=== PATIENT | female | born 1995 | race Caucasian/White ===

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

== ENCOUNTER 2017-05-30 19:25 | Emergency (ER) | payer MEDICAID ==
[~2017-05-30] VITALS: Ht 160 cm; Wt 117.9 kg
[2017-05-30 20:32] LABS: Urine Bacteria FEW /hpf (None Seen); Urine Blood 3+ /uL (Negative); Urine Specific Gravity 1.008 (1.001-1.035); Urine WBC 771 /hpf (0 - 5); Urine WBC Clumps PRESENT /hpf (None Seen)
[2017-05-30 22:18] VITALS: BP 130/73
== END 2017-05-30 23:02 | disposition home or self-care (01) ==
LOC: ER 19:25
DX: N39.0 Urinary tract infection, site not specified (principal); I10 Essential (primary) hypertension; E66.01 Morbid (severe) obesity due to excess calories; Z68.42 Body mass index [BMI] 45.0-49.9, adult; Z87.440 Personal history of urinary (tract) infections
CPT/HCPCS: 81001; 81025

== ENCOUNTER 2019-03-23 13:12 | Emergency (ER) | payer MEDICAID ==
[~2019-03-23] VITALS: Ht 157.5 cm; Wt 115.7 kg
[2019-03-23] MEDS ORDERED: SODIUM CHLORIDE 0.9% 1,000 ML IV ONE ×2 (13:14)
[2019-03-23] MEDS ORDERED: ACTIVATED CHARCOAL 50 GM/240 ML SOL PO ONE (13:15)
[2019-03-23 13:40] LABS: Basophils # (auto) 0.1 uL; Eosinophils # (auto) 0.1 uL; Eosinophils % (auto) 1.1 % (0.0-7.0); Hematocrit 41.9 % (36.0-46.0); Hemoglobin 14.2 g/dL (12.2-16.2); Lymphocytes # (auto) 2.5 uL; Lymphocytes % (auto) 26.5 % (10.0-50.0); Mean Corpuscular Volume 88.4 fL (80.0-100.0); Monocytes # (auto) 0.5 uL; Monocytes % (auto) 5.4 % (0.0-12.0); Neutrophils # (auto) 6.2 uL; Nucleated Red Blood Cells % 0.1 %; Platelet Count (auto) 371 10^3/uL (140-450); Red Blood Cells 4.75 10^6/uL (4.0-5.20); Red Cell Distribution Width 14.1 % (11.8-14.3); White Blood Cell 9.4 10^3/uL (4.4-10.8)
[2019-03-23 14:00] LABS: Albumin 3.9 g/dL (3.4-5.0); Anion Gap 6 (5-15); Blood Urea Nitrogen 7 mg/dL (7-18); Calcium 9.2 mg/dL (8.5-10.1); Carbon Dioxide 28 mmol/L (21-32); Chloride 104 mmol/L (98-107); Glucose 85 mg/dL (74-106); Potassium 4.4 mmol/L (3.5-5.1); Sodium 138 mmol/L (136-145)
[2019-03-23 14:01] LABS: Alanine Aminotransferase 17 U/L (13-56); Aspartate Aminotransferase 9 U/L (15-37); BUN/Creatinine Ratio 6.9; Blood Alcohol < 3.0 mg/dL (0-5); GFR African American 88 mL/min; GFR Non-African American 73 mL/min; Salicylate < 1.7 mg/dL (2.8-20.0)
[2019-03-23 14:02] LABS: Acetaminophen < 2.0 ug/mL (10-30)
[2019-03-23 14:03] LABS: Alkaline Phosphatase 90 U/L (45-117); Bilirubin, Total < 0.1 mg/dL (0.2-1.0); Total Protein 7.3 g/dL (6.4-8.2)
[2019-03-24] MEDS ORDERED: lamoTRIgine 100 MG TAB PO SCH (14:00)
[2019-03-24 17:01] VITALS: BP 122/62
[2019-03-24] MEDS ORDERED: lamoTRIgine 100 MG TAB PO ONE (22:00)
[2019-03-24] MEDS ORDERED: DULoxetine HCL 30 MG CAP PO ONE (22:00)
[2019-03-24] MEDS ORDERED: BENZTROPINE MESY 0.5 MG TAB PO SCH (22:00)
[2019-03-24] MEDS ORDERED: QUEtiapine FUMARATE 25 MG TAB PO SCH (22:00)
== END 2019-03-24 17:37 ==
LOC: ER 13:17
DX: T43.592A Poisoning by other antipsychotics and neuroleptics, intentional self-harm, initial encounter (principal); R42 Dizziness and giddiness; F31.9 Bipolar disorder, unspecified; F41.9 Anxiety disorder, unspecified; F17.210 Nicotine dependence, cigarettes, uncomplicated; Y92.89 Other specified places as the place of occurrence of the external cause
CPT/HCPCS: 36415; 71045; 80053; 80320; 80329; 82962; 84702; 85025; 93005; 96360; 96361; 99285; J7030

== ENCOUNTER 2020-09-21 21:55 | Inpatient (IN) | payer MEDICAID ==
[~2020-09-21] VITALS: Ht 157.5 cm; Wt 131.0 kg
[2020-09-21 22:52] LABS: Urine Amorphous Crystal FEW /hpf (None Seen); Urine Bacteria FEW /hpf (None Seen); Urine Blood 1+ /uL (Negative); Urine Mucus FEW (None Seen); Urine Specific Gravity 1.013 (1.001-1.035); Urine WBC 18 /hpf (0 - 5)
[2020-09-21 23:37] LABS: Basophils # (auto) 0.2 10 ^3/uL (0-0.2); Basophils % (auto) 0.9 % (0.0-2.0); Eosinophils # (auto) 0.2 10 ^3/uL (0-0.8); Eosinophils % (auto) 1.2 % (0.0-7.0); Hemoglobin 14.4 g/dL (12.2-16.2); Lymphocytes # (auto) 2.7 10 ^3/uL (0.4-5.4); Lymphocytes % (auto) 13.4 % (10.0-50.0); Mean Corpuscular Hemoglobin 29.4 pg (28.0-32.0); Mean Corpuscular Hgb Conc. 33.5 g/dL (32.0-36.0); Mean Corpuscular Volume 87.7 fL (80.0-100.0); Monocytes # (auto) 1.1 10 ^3/uL (0-1.3); Monocytes % (auto) 5.3 % (0.0-12.0); Neutrophils # (auto) 16.3 10 ^3/uL (1.6-8.6); Neutrophils % (auto) 79.2 % (37.0-80.0); Nucleated Red Blood Cells % 0.1 %; Red Blood Cells 4.91 10^6/uL (4.0-5.20); Red Cell Distribution Width 13.3 % (11.8-14.3); White Blood Cell 20.6 10^3/uL (4.4-10.8)
[2020-09-21 23:58] LABS: Albumin 3.8 g/dL (3.4-5.0); Calcium 8.8 mg/dL (8.5-10.1); Potassium 3.9 mmol/L (3.5-5.1)
[2020-09-22 00:01] LABS: Bilirubin, Total 0.3 mg/dL (0.2-1.0); Total Protein 7.2 g/dL (6.4-8.2)
[2020-09-22] MEDS ORDERED: cefTRIAXone 1GM/50ML D5W 50 ML IV ONE (00:30)
[2020-09-22] MEDS ORDERED: ONDANSETRON HCL 4 MG/2 ML VIAL IV ONE (00:45)
[2020-09-22] MEDS ORDERED: metroNIDAZOLE 500MG/100ML 100 ML IV ONE (00:45)
[2020-09-22] MEDS ORDERED: MORPHINE SULFATE INJECTION 2 MG/ML SYRG IV ONE (00:45)
[2020-09-22] MEDS ORDERED: SODIUM CHLORIDE 0.9% 1,000 ML IV ONE (00:45)
[2020-09-22] MEDS ORDERED: ONDANSETRON HCL 4 MG/2 ML VIAL IV PRN ×2 (01:15→16:15)
[2020-09-22 01:51] LABS: Partial Thromboplastin Time 28.8 sec (23.0-31.2)
[2020-09-22 02:03] VITALS: BP 121/93
[2020-09-22] MEDS ORDERED: BUPR150T8 PO (02:39)
[2020-09-22] MEDS ORDERED: DULO60CA PO (02:39)
[2020-09-22] MEDS ORDERED: ARIP1TAB7 PO (02:39)
[2020-09-22] MEDS ORDERED: QUET50TA PO (02:39)
[2020-09-22] MEDS: SODIUM CHLORIDE 0.9% 1,000 ML IV SCH ×2 (03:00→09:14)
[2020-09-22] MEDS: metroNIDAZOLE 500MG/100ML 100 ML IV SCH ×3 (05:10→21:36)
[2020-09-22 05:18] VITALS: BP 98/64
[2020-09-22 08:30] VITALS: BP 126/75
[2020-09-22] MEDS: PANTOPRAZOLE 40 MG/10 ML VIAL INJ IV SCH (09:14)
[2020-09-22] MEDS: cefTRIAXone 1GM/50ML D5W 50 ML IV SCH (09:14)
[2020-09-22] MEDS ORDERED: ROCURONIUM 10MG/ML 10ML VIAL IV ONE (11:39)
[2020-09-22] MEDS ORDERED: BUPIVACAINE HCL 0 ML ONE (12:28)
[2020-09-22 12:30] VITALS: BP 107/60
[2020-09-22] MEDS ORDERED: SUCCINYLCHOLINE CHLORIDE 20 MG/ML 10ML VIAL IV ONE (12:51)
[2020-09-22] MEDS ORDERED: LIDOCAINE 2% (LOCAL ANESTH.) PF 5ml SDV ONE (12:59)
[2020-09-22] MEDS ORDERED: fentaNYL CITRATE 100 MCG/2 ML VL ONE (12:59)
[2020-09-22] MEDS ORDERED: MIDAZOLAM HCL 2MG/2ML 2ml VIAL (1mg/ml) ONE (12:59)
[2020-09-22] MEDS ORDERED: HYDROmorphone HCL 2 MG/ML VL ONE (14:50)
[2020-09-22] MEDS ORDERED: PROPOFOL 10 MG/ML 20 ML IV ONE (15:23)
[2020-09-22] MEDS ORDERED: ONDANSETRON HCL 4 MG/2 ML VIAL ONE (15:32)
[2020-09-22] MEDS: MORPHINE SULFATE 4 MG/ML SYR/VIAL IV PRN ×2 (16:04→21:07)
[2020-09-22] MEDS ORDERED: HYDROmorphone HCL 2 MG/ML VL IV PRN ×2 (16:15)
[2020-09-22 16:58] VITALS: BP 135/76
[2020-09-22] MEDS: QUEtiapine FUMARATE 25 MG TAB PO SCH (21:37)
[2020-09-22 22:00] VITALS: BP 121/78
[2020-09-23] MEDS: SODIUM CHLORIDE 0.9% 1,000 ML IV SCH ×2 (00:47→09:47)
[2020-09-23] MEDS: MORPHINE SULFATE 4 MG/ML SYR/VIAL IV PRN ×3 (01:31→09:45)
[2020-09-23 05:00] VITALS: BP 113/70
[2020-09-23] MEDS: metroNIDAZOLE 500MG/100ML 100 ML IV SCH ×3 (05:20→21:26)
[2020-09-23 07:12] LABS: Basophils # (auto) 0 10 ^3/uL (0-0.2); Basophils % (auto) 0.2 % (0.0-2.0); Eosinophils # (auto) 0.1 10 ^3/uL (0-0.8); Hematocrit 36.4 % (36.0-46.0); Hemoglobin 12.4 g/dL (12.2-16.2); Lymphocytes # (auto) 2.3 10 ^3/uL (0.4-5.4); Lymphocytes % (auto) 18.4 % (10.0-50.0); Mean Corpuscular Hemoglobin 29.9 pg (28.0-32.0); Mean Corpuscular Hgb Conc. 34.2 g/dL (32.0-36.0); Mean Corpuscular Volume 87.4 fL (80.0-100.0); Monocytes # (auto) 0.8 10 ^3/uL (0-1.3); Monocytes % (auto) 6.1 % (0.0-12.0); Neutrophils # (auto) 9.1 10 ^3/uL (1.6-8.6); Neutrophils % (auto) 74.3 % (37.0-80.0); Red Blood Cells 4.17 10^6/uL (4.0-5.20); Red Cell Distribution Width 13.7 % (11.8-14.3); White Blood Cell 12.3 10^3/uL (4.4-10.8)
[2020-09-23 07:16] LABS: Calcium 7.8 mg/dL (8.5-10.1); Potassium 3.6 mmol/L (3.5-5.1)
[2020-09-23 07:20] LABS: Albumin 2.8 g/dL (3.4-5.0)
[2020-09-23 07:23] LABS: Bilirubin, Total 0.3 mg/dL (0.2-1.0); Total Protein 5.9 g/dL (6.4-8.2)
[2020-09-23] MEDS: DULoxetine HCL 30 MG CAP PO SCH (08:36)
[2020-09-23] MEDS: PANTOPRAZOLE 40 MG/10 ML VIAL INJ IV SCH (08:36)
[2020-09-23] MEDS: cefTRIAXone 1GM/50ML D5W 50 ML IV SCH (08:36)
[2020-09-23 09:00] VITALS: BP 114/68
[2020-09-23] MEDS: BUPROPION HCL 300 MG PO SCH (09:44)
[2020-09-23] MEDS ORDERED: NICOTINE 14 MG/24HR TOPICAL PATCH TD ONE (12:00)
[2020-09-23] MEDS: ENOXAPARIN SOD 40 MG/0.4 ML SYRINGE SC SCH (12:15)
[2020-09-23] MEDS: HYDROcodone-ACET 10/325MG TAB PO PRN ×2 (12:29→21:26)
[2020-09-23 13:00] VITALS: BP 114/82
[2020-09-23] MEDS: MORPHINE SULFATE INJECTION 2 MG/ML SYRG IV PRN ×3 (13:51→23:10)
[2020-09-23 17:00] VITALS: BP 118/72
[2020-09-23] MEDS: QUEtiapine FUMARATE 25 MG TAB PO SCH (21:27)
[2020-09-23 22:00] VITALS: BP_SYST 120; BP_SYST 133; BP_DIAS 58; BP_DIAS 78
[2020-09-24] MEDS: SODIUM CHLORIDE 0.9% 1,000 ML IV SCH ×3 (00:19→23:51)
[2020-09-24] MEDS: MORPHINE SULFATE INJECTION 2 MG/ML SYRG IV PRN ×4 (04:07→21:28)
[2020-09-24 05:00] VITALS: BP 127/70
[2020-09-24] MEDS: metroNIDAZOLE 500MG/100ML 100 ML IV SCH ×3 (06:03→21:31)
[2020-09-24 08:00] VITALS: BP 129/69
[2020-09-24 08:43] VITALS: BP 129/69
[2020-09-24] MEDS: cefTRIAXone 1GM/50ML D5W 50 ML IV SCH (09:11)
[2020-09-24] MEDS: PANTOPRAZOLE 40 MG/10 ML VIAL INJ IV SCH (09:11)
[2020-09-24] MEDS: BUPROPION HCL 300 MG PO SCH (09:11)
[2020-09-24] MEDS: DULoxetine HCL 30 MG CAP PO SCH (09:12)
[2020-09-24] MEDS: NICOTINE 14 MG/24HR TOPICAL PATCH TD SCH (09:12)
[2020-09-24] MEDS: ENOXAPARIN SOD 40 MG/0.4 ML SYRINGE SC SCH (09:12)
[2020-09-24 12:54] VITALS: BP 130/61
[2020-09-24] MEDS: HYDROcodone-ACET 10/325MG TAB PO PRN (15:25)
[2020-09-24 16:55] VITALS: BP 121/77
[2020-09-24] MEDS: DOCUSATE SOD 100 MG CAP PO PRN (18:34)
[2020-09-24] MEDS: QUEtiapine FUMARATE 25 MG TAB PO SCH (21:31)
[2020-09-24 22:00] VITALS: BP 119/63
[2020-09-25 05:00] VITALS: BP 118/56
[2020-09-25] MEDS: metroNIDAZOLE 500MG/100ML 100 ML IV SCH ×2 (06:12→14:29)
[2020-09-25 08:00] VITALS: BP 130/83
[2020-09-25] MEDS: DOCUSATE SOD 100 MG CAP PO PRN ×2 (08:51→18:01)
[2020-09-25] MEDS: HYDROcodone-ACET 10/325MG TAB PO PRN ×2 (08:51→15:49)
[2020-09-25 08:57] VITALS: BP 130/83
[2020-09-25] MEDS: DULoxetine HCL 30 MG CAP PO SCH (09:19)
[2020-09-25] MEDS: cefTRIAXone 1GM/50ML D5W 50 ML IV SCH (09:19)
[2020-09-25] MEDS: PANTOPRAZOLE 40 MG/10 ML VIAL INJ IV SCH (09:20)
[2020-09-25] MEDS: ENOXAPARIN SOD 40 MG/0.4 ML SYRINGE SC SCH ×2 (09:20→10:00)
[2020-09-25] MEDS: BUPROPION HCL 300 MG PO SCH (09:20)
[2020-09-25] MEDS: NICOTINE 14 MG/24HR TOPICAL PATCH TD SCH (09:20)
[2020-09-25] MEDS ORDERED: AMOXICILLIN/CLAVUL 875 MG TAB PO ONE (11:30)
[2020-09-25] MEDS: SODIUM CHLORIDE 0.9% 1,000 ML IV SCH (11:37)
[2020-09-25 13:00] VITALS: BP 115/70
[2020-09-25 14:37] VITALS: BP 115/70
[2020-09-25 17:15] VITALS: BP 149/86
== END 2020-09-25 20:00 | disposition home health service (06) | DRG 223 ==
LOC: ER 21:56 → OVERFLOW 09-22 01:01 → WEST WING 09-22 01:44
PROVIDERS: ADMIT Nurse Practitioner; ATTEND Internal Medicine
PROC: 0TQB0ZZ Repair Bladder, Open Approach (ICD-10-PCS; 2020-09-22)
PROC: 0WJG4ZZ Inspection of Peritoneal Cavity, Percutaneous Endoscopic Approach (ICD-10-PCS; 2020-09-22)
PROC: 0DTJ0ZZ Resection of Appendix, Open Approach (ICD-10-PCS; principal; 2020-09-22 13:00)
DX: K35.80 Unspecified acute appendicitis (principal); E66.01 Morbid (severe) obesity due to excess calories; N39.0 Urinary tract infection, site not specified; Z20.822 Contact with and (suspected) exposure to COVID-19; E88.09 Other disorders of plasma-protein metabolism, not elsewhere classified; F41.9 Anxiety disorder, unspecified; F17.210 Nicotine dependence, cigarettes, uncomplicated; S37.23XA Laceration of bladder, initial encounter; F31.9 Bipolar disorder, unspecified; X58.XXXA Exposure to other specified factors, initial encounter; Z68.43 Body mass index [BMI] 50.0-59.9, adult; Z53.31 Laparoscopic surgical procedure converted to open procedure; Z80.3 Family history of malignant neoplasm of breast; Z90.49 Acquired absence of other specified parts of digestive tract; Y93.89 Activity, other specified; Y92.89 Other specified places as the place of occurrence of the external cause; Y99.8 Other external cause status; Z71.6 Tobacco abuse counseling
CPT/HCPCS: 36415; 71046; 74176; 80053; 81001; 81025; 85025; 85610; 85730; 86850; 86900; 86901; 87426; 96365; 96367; 96375; 97116; 97163; 97530; C9113; G0378; J0330; J0696; J2001; J2250; J2405; J2704; J3490

== ENCOUNTER 2020-10-02 21:28 | Emergency (ER) | payer MEDICAID ==
[~2020-10-02] VITALS: Ht 157.5 cm; Wt 122.5 kg
[~2020-10-02 21:28] MED LIST changes: +ARIP1TAB7 PO; +BUPR150T8 PO; -DULO20CA PO; +DULO60CA PO; -MIRT1TAB PO; +QUET50TA PO; -RISP0.2535 PO; -TRAZ50TA2 PO
[2020-10-02 22:04] VITALS: BP 134/79
== END 2020-10-03 01:52 | disposition home or self-care (01) ==
LOC: ER 21:30
DX: T83.018A Breakdown (mechanical) of other urinary catheter, initial encounter (principal); F17.210 Nicotine dependence, cigarettes, uncomplicated
CPT/HCPCS: 51702

== ENCOUNTER → 2020-10-13 | Outpatient (CLI) | payer MEDICAID ==
[~2020-10-13] MED LIST changes: +IOTHALAMATE MEGLUMINE INJ 250ML BOT UR ONE
== END | disposition home or self-care (01) ==
LOC: XYW 11:15
PROVIDERS: ATTEND Surgery
DX: N32.89 Other specified disorders of bladder (principal); F31.89 Other bipolar disorder; F17.200 Nicotine dependence, unspecified, uncomplicated; F41.9 Anxiety disorder, unspecified; F99 Mental disorder, not otherwise specified; Z98.890 Other specified postprocedural states; Z79.899 Other long term (current) drug therapy
CPT/HCPCS: 51600; 74430; Q9958; 51702

== ENCOUNTER 2021-02-08 18:58 | Emergency (ER) | payer MEDICAID ==
[~2021-02-08] VITALS: Ht 157.5 cm; Wt 122.5 kg
[~2021-02-08 18:58] MED LIST changes: -IOTHALAMATE MEGLUMINE INJ 250ML BOT UR ONE
[2021-02-08 19:27] LABS: Urine Bacteria FEW /hpf (None Seen); Urine Blood 2+ /uL (Negative); Urine Mucus FEW (None Seen); Urine Specific Gravity 1.022 (1.001-1.035); Urine WBC 158 /hpf (0 - 5)
[2021-02-08 22:34] VITALS: BP 154/93
[2021-02-08] MEDS ORDERED: cefTRIAXone SOD 1,000 MG VL IM ONE (23:00)
== END 2021-02-08 23:37 | disposition home or self-care (01) ==
LOC: ER 18:59
DX: N39.0 Urinary tract infection, site not specified (principal); E66.9 Obesity, unspecified; R45.5 Hostility; F17.210 Nicotine dependence, cigarettes, uncomplicated; Z68.41 Body mass index [BMI] 40.0-44.9, adult; Z79.899 Other long term (current) drug therapy
CPT/HCPCS: 81001; 96372; 99283; J0696

== ENCOUNTER 2021-05-09 16:42 | Emergency (ER) | payer MEDICAID ==
[~2021-05-09] VITALS: Ht 157.5 cm; Wt 113.4 kg
[2021-05-09 19:24] LABS: Basophils # (auto) 0.1 10 ^3/uL (0-0.2); Basophils % (auto) 0.7 % (0.0-2.0); Eosinophils # (auto) 0.1 10 ^3/uL (0-0.8); Eosinophils % (auto) 0.9 % (0.0-7.0); Hematocrit 45.5 % (36.0-46.0); Lymphocytes # (auto) 2.9 10 ^3/uL (0.4-5.4); Lymphocytes % (auto) 25.3 % (10.0-50.0); Mean Corpuscular Hemoglobin 29.4 pg (28.0-32.0); Mean Corpuscular Volume 88.9 fL (80.0-100.0); Monocytes # (auto) 0.7 10 ^3/uL (0-1.3); Neutrophils # (auto) 7.6 10 ^3/uL (1.6-8.6); Neutrophils % (auto) 67.1 % (37.0-80.0); Red Blood Cells 5.12 10^6/uL (4.0-5.20); Red Cell Distribution Width 13.7 % (11.8-14.3); White Blood Cell 11.4 10^3/uL (4.4-10.8)
[2021-05-09 19:39] LABS: Albumin 4.2 g/dL (3.4-5.0); Calcium 9.3 mg/dL (8.5-10.1)
[2021-05-09 19:43] LABS: BUN/Creatinine Ratio 11.6
[2021-05-09 19:46] LABS: Bilirubin, Total 0.2 mg/dL (0.2-1.0); Total Protein 7.6 g/dL (6.4-8.2)
[2021-05-09 21:35] VITALS: BP 111/78
== END 2021-05-09 21:47 | disposition home or self-care (01) ==
LOC: ER 16:42
DX: S09.90XA Unspecified injury of head, initial encounter (principal); R55 Syncope and collapse; G43.909 Migraine, unspecified, not intractable, without status migrainosus; F17.210 Nicotine dependence, cigarettes, uncomplicated; Z90.49 Acquired absence of other specified parts of digestive tract; Z79.899 Other long term (current) drug therapy; W18.39XA Other fall on same level, initial encounter; Y93.89 Activity, other specified; Y92.89 Other specified places as the place of occurrence of the external cause; Y99.8 Other external cause status
CPT/HCPCS: 36415; 70450; 80053; 85025; 93005

== ENCOUNTER 2021-07-11 20:12 | Emergency (ER) | payer MEDICAID ==
[~2021-07-11] VITALS: Ht 157.5 cm; Wt 86.2 kg
[2021-07-11 20:16] VITALS: BP 151/93
[2021-07-11] MEDS ORDERED: AMOX-277 PO (23:26)
[2021-07-11] MEDS ORDERED: IBUP600T27 PO (23:26)
== END 2021-07-11 23:54 | disposition home or self-care (01) ==
LOC: ER 20:15
DX: K02.9 Dental caries, unspecified (principal); F17.210 Nicotine dependence, cigarettes, uncomplicated; Z90.49 Acquired absence of other specified parts of digestive tract; Z79.1 Long term (current) use of non-steroidal anti-inflammatories (NSAID); Z79.2 Long term (current) use of antibiotics; Z79.899 Other long term (current) drug therapy

== ENCOUNTER 2025-03-07 09:47 | Emergency (ER) | payer MEDICAID ==
[~2025-03-07] VITALS: Ht 165.1 cm; Wt 103.4 kg
[~2025-03-07 09:47] MED LIST changes: +AMOX875T4 PO; -ARIP1TAB7 PO; +ARIP20TA4 PO; -DULO60CA PO; +DULO60CA41 PO; +IBUP-1454 PO
[2025-03-07 09:49] VITALS: TEMP 97.7
--- NOTE | 2025-03-07 10:59 | ED.PDOC ---
Back pain HPI HPI Comments 29 y.o female presents to the ED for a chief complaint for chronic lower back pain. Patient reports having a herniated disc, states f/u with electronic publishing specialist who recommended her to come into the ED if pain worsened. Patient reports having new onset bladder incontinence with increased pain described as sharp x 1-2 days. Patient denies any numbness, tingling sensation or recent falls. Chief Complaint: Back Pain Time Seen by MD: 10:36 Primary Care Provider: BELINDA Green Notes: Nurses Notes, Medications, Allergies Allergies: Coded Allergies: NO KNOWN ALLERGIES (Unverified , 03/23/19) Home Meds Active Scripts Ibuprofen (Ibuprofen) 600 Mg Tab, 600 MG PO Q8HPRN PRN, #30 MG 0 Refills Prov:GIANCARLO DIANE MD 07/11/21 Amoxicillin & Pot Clavulanate (Amoxicillin/Potassium Cla) 875 Mg Tab, 1 TAB PO BID, #20 TAB Prov:GIANCARLO DIANE MD 07/11/21 Reported Medications Quetiapine Fumerate (Seroquel) 50 Mg Tab, 75 MG PO HS for 30 Days, MG 09/22/20 Aripiprazole (Abilify) 20 Mg Tab, 15 MG PO QAM, TAB 09/22/20 Bupropion Hcl (Wellbutrin Sr) 150 Mg Tab, 300 MG PO QAM, TAB 09/22/20 Duloxetine Hcl (Cymbalta) 60 Mg Cap, 2 CAP PO DAILY@BREAKFAST, #90 CAP 3 Refills 09/22/20 Information Source: Patient Mode of Arrival: Ambulatory Timing: Days Duration: Since onset Location of Back pain: (B) Lower back Severity: Moderate Quality: Sharp Onset: Other History of: Chronic Back Pain Modifying Factors: Nothing Past Medical History PAST MEDICAL HISTORY: Anxiety, Depression, Schizophrenia, UTI'S Past Medical History (Other): chronic back pain Surgical History: Appendectomy, Denies all surgeries SALES MERCHANDISING SPECIALIST History: No Pertinent SALES MERCHANDISING SPECIALIST History Family History Family History: Family hx of DM, Family hx of Cancer, Family hx of HTN Social History Smoker: Cigarettes, Less Than 1 Pack/Day, Other Alcohol: Occasionally Drugs: Marijuana Lives In: Home Constitutional: denies: chills, diaphoresis, fatigue, fever, malaise, sweats, weakness, others EENTM: denies: blurred vision, double vision, ear bleeding, ear discharge, ear drainage, ear pain, ear ringing, eye pain, eye redness, hearing loss, mouth pain, mouth swelling, nasal discharge, nose bleeding, nose congestion, nose pain, photophobia, tearing, throat pain, throat swelling, voice changes, others Respiratory: denies: cough, hemoptysis, orthopnea, SOB at rest, shortness of breath, SOB with excertion, stridor, wheezing, others Cardiovascular: denies: chest pain, dizzy spells, diaphoresis, Dyspnea on exertion, edema, irregular heart beat, left arm pain, lightheadedness, palpitations, PND, syncope, others Gastrointestinal: denies: abdomen distended, abdominal pain, blood streaked bowels, constipated, diarrhea, dysphagia, difficulty swallowing, hematemesis, melena, nausea, poor appetite, poor fluid intake, rectal bleeding, rectal pain, vomiting, others Genitourinary: reports: incontinence; denies: abnormal vagina bleeding, burning, dyspareunia, dysuria, flank pain, frequency, hematuria, pain, , vagina discharge, urgency, others Neurological: denies: dizziness, fainting, headache, left sided numbness, left sided weakness, numbness, paresthesia, pre-existing deficit, right sided numbness, right sided weakness, seizure, speech problems, tingling, tremors, weakness, others Musculoskeletal: reports: back pain; denies: gout, joint pain, joint swelling, muscle pain, muscle stiffness, neck pain, others Integumetry: denies: bruises, change in color, change in hair/nails, dryness, laceration, lesions, lumps, rash, wounds, others Allergic/Immunocompromised: denies: Difficulty Healing, Frequent Infections, Hives, Itching, others Hematologic/Lymphatic: denies: anemia, blood clots, easy bleeding, easy bruising, swollen glands, others Endocrine: denies: excessive hunger, excessive sweating, excessive thirst, excessive urination, flushing, intolerance to cold, intolerance to heat, unexplained weight gain, unexplained weight loss, others Psychiatric: denies: anxiety, bipolar disorder, depression, hopeless, panic disorder, schizophrenia, sleepless, suicidal, others All Other Systems: Reviewed and Negative Physical Exam General Appearance: Moderate Distress HEENT: Normal ENT Inspection, Pharynx Normal, TMs Normal Neck: Full Range of Motion, Non-Tender, Normal, Normal Inspection Respiratory: Chest Non-Tender, Lungs Clear, No Accessory Muscle Use, No Respiratory Distress, Normal Breath Sounds Cardiovascular: No Edema, No JVD, No Murmur, No Gallop, Normal Peripheral Pulses, Regular Rate/Rhythm Breast Exam: Deferred Gastrointestinal: No Organomegaly, Non Tender, No Pulsatile Mass, Normal Bowel Sounds, Soft Genitalia: Deferred Pelvic: Deferred Rectal: Deferred Extremities: No calf tenderness, Normal capillary refill, Normal inspection, Normal range of motion, Non-tender, No pedal edema Musculoskeletal : Apperance: Normal Neurologic: Alert, die press operator II-XII nml as Tested, No Motor Deficits, Normal Affect, Normal Mood, No Sensory Deficits Cerebellar Function: Normal Reflexes: Normal Skin: Dry, Normal Color, Warm Peripheral Pulses: 3+ Radial (R), 3+ Radial (L) Lymphatic: No Adenopathy Was a procedure done? Was a procedure done?: No Back Pain Differential Dx Differential Diagnosis: DJD, Musculoskeletal Pain, Strain X-Ray, Labs, Meds, VS Vital Signs Date Time Temp Pulse Resp B/P (MAP) Pulse Ox O2 Delivery O2 Flow Rate FiO2 03/07/25 14:24 111 18 97 Room Air 03/07/25 14:24 111 18 138/95 (109) 97 03/07/25 09:49 97.7 116 16 151/112 96 97.7 Current Medications Medications (Trade) Dose Ordered Sig/Salvador Route Start Time Stop Time Status Last Admin Ketorolac Tromethamine (Toradol Injection) 60 mg ONCE ONCE IM 03/07/25 11:00 03/07/25 11:01 DC 03/07/25 14:22 Patient alert. Vitals stable. Ambulating. Answering all questions. Chronic back pain. Was given Toradol. No leg swelling. X-ray reviewed does not show any acute changes. Was told to follow up with her air defense specialist. She will need to continue taking her pain medication. No recent injury. Was told to follow up with her primary care physician. Was told to come back if there is any problem. Time of 1ST Reevaluation: 10:58 Reevaluation 1ST: Unchanged Patient Education/Counseling: Diagnosis, Treatment, Prognosis Family Education/Counseling: No Family Present SEPSIS Sepsis Screen Date sepsis recognized/suspect: Mar 07, 2025 Time Sepsis recognized/suspect: 948 Recent Procedure: No On Antibiotic Therapy: No Respiratory Rate >20: No Heart Rate >90: Yes Temp<36 C (96.8 F) or >38.3 C: No SBP <90 or MAP <65 mmHG: No New Acute Mental Status Change: No Is the patient on CPAP, BIPAP,: No Physician Orders Lumbar Spine 4+ View (03/07/25 10:54) Vital Signs Date Time Temp Pulse Resp B/P (MAP) Pulse Ox O2 Delivery O2 Flow Rate FiO2 03/07/25 14:24 111 18 97 Room Air 03/07/25 14:24 111 18 138/95 (109) 97 03/07/25 09:49 97.7 116 16 151/112 96 97.7 Medications Medications Dose Ordered Sig/Salvador Route Start Time Stop Time Status Last Admin Dose Admin Ketorolac Tromethamine 60 mg ONCE ONCE IM 03/07/25 11:00 03/07/25 11:01 DC 03/07/25 14:22 Departure 1 Departure Time of Disposition: 14:28 Impression: Primary Impression: Degenerative disc disease Qualified Codes: M51.369 - Other intervertebral disc degeneration, lumbar region without mention of lumbar back pain or lower extremity pain Disposition: 01 HOME / SELF CARE / HOMELESS Condition: Good Discharged With: Self Critical Care Note Critical Care Time?: No Stability Stability form required: No I personally scribed for LILIA AGUILERA MD ([email or web address]) on 03/07/25 at 10:59. Electronically submitted by Herminia Vasquez ([facility]). LILIA AGUILERA MD Mar 07, 2025 10:59
--- NOTE | 2025-03-07 12:16 | DVH ---
CLINICAL HISTORY: back pain TECHNIQUE: 5 views of the lumbar spine were obtained. WID: COMPARISON: CT abdomen and pelvis from 09/21/2020 FINDINGS: There are 5 [id number] lumbar type vertebral bodies. The pedicles are intact. Sacroiliac joints are maintained. The vertebral body heights are maintained. Minor disc space narrowing at L5-S1. Ther e is no acute fracture. Overlying soft tissues are intact. Visualized bowel gas is nonobstructed. S urgical clips project over the right lower quadrant. IMPRESSION: 1. Mild degenerative narrowing at the L5-S1 disc space. 2. No acute fracture or traumatic malalignment
[2025-03-07] MEDS: KETOROLAC TROMETH 60MG/2ML VIAL IM ONE (14:22)
[2025-03-07 14:24] VITALS: BP 138/95; PULSE 111; RESP 18; O2SAT 97
== END 2025-03-07 14:40 | disposition home or self-care (01) ==
LOC: ER 09:47
DX: M51.369 Other intervertebral disc degeneration, lumbar region without mention of lumbar back pain or lower extremity pain (principal); F41.9 Anxiety disorder, unspecified; F20.9 Schizophrenia, unspecified; F32.A Depression, unspecified; F17.210 Nicotine dependence, cigarettes, uncomplicated; Z79.899 Other long term (current) drug therapy; Z87.440 Personal history of urinary (tract) infections; Z90.49 Acquired absence of other specified parts of digestive tract
CPT/HCPCS: 72110; 96372; 99283; J1885